=== PATIENT | male | born 1965 | race African-American/Black ===

== ENCOUNTER 2017-10-16 14:58 | Observation (INO) | payer OTHER, SELFPAY ==
--- NOTE | 2017-10-16 15:31 | CT ---
HEAD CT NONCONTRAST: Indication: Stroke activation. Indication: New onset right side arm weakness, slurred speech. FINDINGS: Ventricular system is normal in size. No intracranial hemorrhage, mass effect, or midline shift. No a cute fluid level in the paranasal sinuses. IMPRESSION: No acute intracranial abnormalities. Code CR. ER physician Regina Currie notified at 1521 hours on 10-16-17. POS: [facility]
[2017-10-16 15:34] LABS: #Basophils 0.1 thou/uL (0.0-0.2); #Lymphocytes 2.8 thou/uL (1.20-3.40); #Monocytes 0.5 thou/uL (0.11-0.59); #Neutrophils 2.9 thou/uL (1.40-6.50); %Basophils 1.6 % (0.0-1.0); %Eosinophils 0.6 % (0.0-10.0); %Lymphocytes 44.1 % (21.0-51.0); %Monocytes 8.3 % (0.0-10.0); %Neutrophils 45.4 % (42.0-75.0); Hemoglobin 13.7 g/dL (14.0-18.0); Mean Corpuscular HGB CONC 32.9 g/dL (32.0-36.0); Mean Corpuscular Hemoglobin 29.4 pg (27.0-31.0); Mean Corpuscular Volume 89.3 fl (80.0-94.0); Platelet Count 310 thou/uL (130-400); Red Blood Cell (RBC) Count 4.65 mill/uL (4.70-6.10); White Blood Cell (WBC) Count 6.4 thou/uL (4.8-10.8)
[2017-10-16 15:41] LABS: PTT 28.3 SEC (22.9-36.1); Prothrombin Time 13.7 SEC (12.0-14.7)
[2017-10-16 15:49] LABS: ALT (SGPT) 35 U/L (8-55); AST (SGOT) 35 U/L (5-34); Alkaline Phosphatase 66 U/L (40-150); Anion Gap 16 mmol/L (10-20); BUN (Urea Nitrogen) 21 mg/dL (8.9-20.6); Bilirubin, Total 1.1 mg/dL (0.2-1.2); Calc. Creatinine Clearance 0 mL/min (70-130); Calcium 10.1 mg/dL (7.8-10.44); Carbon Dioxide 23 mmol/L (22-29); Chloride 105 mmol/L (98-107); Estimated GFR-MDRD 76; Globulin 2.9 g/dL (2.4-3.5); Glucose 80 mg/dL (70-105); Potassium 3.8 mmol/L (3.5-5.1); Protein, Total 7.9 g/dL (6.0-8.3); Sodium 140 mmol/L (136-145)
[2017-10-16 15:54] LABS: CKMB 4.5 ng/mL (0-6.6); Troponin I Less than 0.010 ng/mL (< 0.028)
[2017-10-16] MEDS ORDERED: Ketorolac Tromethamine 30 MG/ML VIAL ONE (16:07)
[2017-10-16] MEDS ORDERED: Methocarbamol 500 MG TAB PO SCH (16:15)
[2017-10-16 21:37] LABS: Troponin I Less than 0.010 ng/mL (< 0.028)
[2017-10-16] MEDS ORDERED: Acetaminophen 325 MG TAB PO PRN (21:41)
[2017-10-16] MEDS ORDERED: Ondansetron HCl/PF 4 MG/2 ML Vial IVP PRN (21:41)
[2017-10-16] MEDS ORDERED: Ondansetron ODT 4 MG TAB SL PRN (21:41)
[2017-10-16 23:59] LABS: Troponin I Less than 0.010 ng/mL (< 0.028)
[2017-10-17] MEDS ORDERED: traMADol HCl 50 MG TAB PO PRN (06:47)
[2017-10-17] MEDS ORDERED: hydrALAZINE 20 MG/ML VIAL SLOW IVP PRN (06:47)
[2017-10-17] MEDS ORDERED: Nitroglycerin 0.4 MG TAB (25 Tab Bottle) SL SCH (07:00)
[2017-10-17 07:12] LABS: #Basophils 0.1 thou/uL (0.0-0.2); #Eosinphils 0.1 thou/uL (0.0-0.7); #Lymphocytes 2.3 thou/uL (1.20-3.40); #Monocytes 0.6 thou/uL (0.11-0.59); #Neutrophils 2.1 thou/uL (1.40-6.50); %Basophils 1.6 % (0.0-1.0); %Eosinophils 1.3 % (0.0-10.0); %Lymphocytes 44.7 % (21.0-51.0); %Monocytes 11.1 % (0.0-10.0); %Neutrophils 41.3 % (42.0-75.0); Hemoglobin 13.1 g/dL (14.0-18.0); Mean Corpuscular HGB CONC 33.7 g/dL (32.0-36.0); Mean Corpuscular Hemoglobin 30.7 pg (27.0-31.0); Mean Platelet Volume 6.1 fL (7.4-10.4); Platelet Count 266 thou/uL (130-400); RBC Distribution Width 12.1 % (11.5-14.5); Red Blood Cell (RBC) Count 4.28 mill/uL (4.70-6.10)
[2017-10-17 07:41] LABS: Anion Gap 11 mmol/L (10-20); BUN (Urea Nitrogen) 25 mg/dL (8.9-20.6); Calc. Creatinine Clearance 61 mL/min (70-130); Calcium 9.3 mg/dL (7.8-10.44); Carbon Dioxide 26 mmol/L (22-29); Chloride 106 mmol/L (98-107); Estimated GFR-MDRD 88; Glucose 86 mg/dL (70-105); Sodium 139 mmol/L (136-145)
[2017-10-17] MEDS: Heparin 5,000 UNITS/ML VIAL SC SCH ×3 (08:29→20:46)
[2017-10-17] MEDS: Aspirin 81 mg Enteric Coated Tablet PO SCH (08:29)
--- NOTE | 2017-10-17 09:50 | ULT ---
BILATERAL CAROTID DUPLEX ULTRASOUND EXAMINATION WITH SPECTRAL ANALYSIS AND COLOR FLOW EVALUATION: DATE: 10/17/17. HISTORY: TIA. FINDINGS: Velasquez scale, color flow, Doppler evaluation, and spectral analysis of the bilateral carotid arteries w ith 2D imaging. There is no significant atherosclerotic plaque seen within the carotid arteries bila terally. There is less than 50% maximal stenosis in the bilateral internal carotid arteries according to the p eak systolic velocities and the ICA/CCA ratios. Peak systolic velocity in the right ICA is 95.6 cm/s with an ICA/CCA ratio of 0.91. Peak systolic velocity I the left ICA is 91.8 cm/s with an ICA/CCA ratio of 0.93. Antegrade flow is demonstrated in the vertebral arteries bilaterally. The velocity measurements have not significantly changed when compared to a prior study in 2013. IMPRESSION: No hemodynamically significant stenosis in the bilateral internal carotid arteries. POS: [facility]
--- NOTE | 2017-10-17 12:37 | PDOC.PN ---
- Subjective Encounter Start Date: 10/17/17 Encounter Start Time: 12:35 Subjective: neuro symptoms resolved - Objective Resuscitation Status: Resuscitation Status FULL:Full Resuscitation MAR Reviewed: Yes Vital Signs & Weight: Vital Signs (12 hours) Temp Pulse Resp BP BP Pulse Ox 10/17/17 11:57 99 F 65 16 145/90 H 100 10/17/17 08:46 78 142/98 H 10/17/17 08:43 97.9 F 74 20 151/101 H 100 10/17/17 08:29 62 10/17/17 08:00 97.9 F 74 20 10/17/17 04:00 98.8 F 62 16 137/83 99 Result Diagrams: 10/17/17 06:55 10/17/17 06:55 Phys Exam - Physical Examination Constitutional: NAD Neck: no JVD Respiratory: clear to auscultation bilateral Cardiovascular: RRR, no significant murmur Gastrointestinal: soft, non-tender Musculoskeletal: no edema CN 2-12 intact, DTRs symetric, strength intact Dx/Plan (1) TIA (transient ischemic attack) Status: Acute Qualifiers: Transient cerebral ischemia type: unspecified Qualified Code(s): G45.9 - Transient cerebral ischemic attack, unspecified (2) Dyslipidemia Code(s): E78.5 - HYPERLIPIDEMIA, UNSPECIFIED Status: Chronic (3) HTN (hypertension) Code(s): I10 - ESSENTIAL (PRIMARY) HYPERTENSION Status: Chronic Qualifiers: Hypertension type: essential hypertension Qualified Code(s): I10 - Essential (primary) hypertension (4) Chest pain Code(s): R07.9 - CHEST PAIN, UNSPECIFIED Status: Acute Comment: Troponins negative x 3, plan for left heart cath in am - Plan carotid US ok, MRI brain pending -: cont asa, statin -: troponins normal, cardiac cath 01/21 essentially normal- no further ROSENBAUM * .
--- NOTE | 2017-10-17 16:38 | CON ---
DATE OF CONSULTATION: 10/17/2017 REFERRING PHYSICIAN: April Hendrickson MD REASON FOR CONSULTATION: TIA. HISTORY OF PRESENT ILLNESS: Mr. Lin is a pleasant 51-year-old male, who has been consu lted for evaluation of TIA. The patient reports that yesterday he was in the phone with his daughter and suddenly noted right arm to twist and locked up. He was feeling heaviness in the right arm and also noted slurring of his speech, this prompted him to present to the [facility]. He notes that these symptoms lasted approximately 30 minutes and then resolved. He reports that on morning he had another episode, where he had a sudden onset of blurry vision along with dark floate rs in the right eye followed by sudden severe throbbing sharp pain on the right frontotemporal region , this was nonradiating and lasted approximately 30 minutes and then resolved. His symptoms of blurr y vision and dark floaters lasted less than 10 minutes. He states that on July of this year, he had an episode where he had a sudden onset of a sharp pain in the left frontotemporal region along wi th blurry vision in left eye. He also had noted numbness and tingling sensation in the left upper an d left lower extremity that migrated toward the right side and lasted for approximately 20-30 minutes and then resolved. He did not seek any medical attention at that time. Currently, he denies any he adache, chest pain, palpitation, nausea, vomiting, abdominal pain, numbness, tingling or weakness. H e did mention that over the past few days he has been having upset stomach and nausea, but no vomitin g. He also has noted episodes of chest pain and palpitation that is intermittent. PAST MEDICAL HISTORY: Significant for hypertension, coronary artery disease, history of MO, and hype rlipidemia. PAST SURGICAL HISTORY: Significant for cervical spine surgery, right elbow surgery, appendectomy, ca rdiac stent placement. SOCIAL HISTORY: He denies alcohol use. He is a former smoker, quit smoking about 1 year ago. He de nies illicit drug use. He is . FAMILY HISTORY: Noncontributory. CURRENT MEDICATIONS: Please review MAR. ALLERGIES: Include LIDOCAINE and METOPROLOL. REVIEW OF SYSTEMS: As mentioned in the HPI, otherwise negative. PHYSICAL EXAMINATION: VITAL SIGNS: Blood pressure of 145/90, pulse of 65, temperature of 99, respirations of 16, O2 sats o f 100% on room air. GENERAL: Well-developed, well-nourished -[place] male, in no apparent distress. RESPIRATORY: Clear to auscultation bilaterally. CARDIOVASCULAR: Regular rate and rhythm. NEUROLOGIC: Mental status: The patient is awake, alert, and oriented x3. Speech and language: Flu ent speech. Cranial nerves: Pupils are 3 mm and reactive. Visual wilcox are intact. External musc les are intact. No nystagmus is noted. Face is symmetric. Tongue and uvula are midline. Motor exa m showed normal tone and bulk with 5/5 strength in both upper and lower extremities. Sensory: Sensa tion is intact and symmetric in both upper and lower extremities. Deep tendon reflexes 2+ reflexes i n both upper and lower extremities. Babinski: Plantar responses flexion bilaterally. Coordination intact to [id number]-zdal-hkpeaf and finger tapping bilaterally. LABORATORY DATA: Reviewed, which included CBC, coag panel, CMP, which is significant for hemoglobin 13.1, hematocrit 39.0, otherwise unremarkable. IMAGING STUDIES: CT head without contrast, which showed no acute intracranial abnormality. Carotid Doppler results were reviewed, which showed no hemodynamically significant stenosis. IMPRESSION: 1. Transient episode of right upper extremity weakness. 2. Hypertension. PLAN: Mr. Lin is a pleasant 51-year-old -[place] male, who presented with an acute onset of right upper extremity heaviness and weakness along with slurred speech. His symptoms resolved in less than 30 minutes. This could be suggestive of a transient ischemic attack. Another possibility is a migraine aura with headache since he had the episode of blurred vision in the right eye followe d by severe headache. At this time, I would recommend obtaining echocardiogram. I will recommend st arting him on aspirin 81 mg daily for secondary stroke prevention. If the echocardiogram is normal, the patient is okay to be discharged to home. Since the MRI machines are currently unoperationable, he can have MRI brain as an outpatient and I will be happy to see him in clinic post-discharge in 4-6 weeks. Thank you for consultation.
[2017-10-17] MEDS ORDERED: Atorvastatin Calcium 10 MG TAB PO SCH (21:00)
[2017-10-17] MEDS ORDERED: Pravastatin Sodium 20 MG TAB PO SCH (21:00)
[2017-10-18 05:53] LABS: #Basophils 0.1 thou/uL (0.0-0.2); #Eosinphils 0.1 thou/uL (0.0-0.7); #Lymphocytes 2.4 thou/uL (1.20-3.40); #Monocytes 0.5 thou/uL (0.11-0.59); #Neutrophils 2.2 thou/uL (1.40-6.50); %Basophils 1.6 % (0.0-1.0); %Eosinophils 1.8 % (0.0-10.0); %Lymphocytes 44.6 % (21.0-51.0); %Monocytes 9.8 % (0.0-10.0); %Neutrophils 42.2 % (42.0-75.0); Hemoglobin 12.5 g/dL (14.0-18.0); Mean Corpuscular HGB CONC 32.2 g/dL (32.0-36.0); Mean Corpuscular Hemoglobin 29.5 pg (27.0-31.0); Mean Corpuscular Volume 91.4 fl (80.0-94.0); Mean Platelet Volume 6.3 fL (7.4-10.4); Platelet Count 286 thou/uL (130-400); Red Blood Cell (RBC) Count 4.24 mill/uL (4.70-6.10); White Blood Cell (WBC) Count 5.3 thou/uL (4.8-10.8)
[2017-10-18 06:20] LABS: Anion Gap 10 mmol/L (10-20); BUN (Urea Nitrogen) 17 mg/dL (8.9-20.6); Calc. Creatinine Clearance 66 mL/min (70-130); Carbon Dioxide 27 mmol/L (22-29); Cardiac Risk 2.5 (Less than 4.5); Chloride 106 mmol/L (98-107); Cholesterol 201 mg/dl (< 200 Desired); Estimated GFR-MDRD Greater than 90; Glucose 91 mg/dL (70-105); HDL Cholesterol 80 mg/dL (>60 Neg Risk); LDL Cholesterol, Calculated 109 mg/dL; Potassium 3.9 mmol/L (3.5-5.1); Triglycerides 58 mg/dL (Less than 150)
[2017-10-18 06:32] LABS: Sodium 139 mmol/L (136-145)
[2017-10-18 07:46] VITALS: TEMP 97.8
[2017-10-18] MEDS: Heparin 5,000 UNITS/ML VIAL SC SCH ×2 (08:44→16:35)
[2017-10-18] MEDS: Aspirin 81 mg Enteric Coated Tablet PO SCH (08:45)
[2017-10-18 11:49] VITALS: BP 142/82
--- NOTE | 2017-10-18 12:14 | MRI ---
MRI WITHOUT CONTRAST: HISTORY: Stroke activation. Right arm weakness. Slurred speech. COMPARISON: None. CORRELATION: Noncontrast head CT 10/16/17. TECHNIQUE: Brain MRI is performed without intravenous Gadolinium administration. Multisequential, multiplanar i maging is performed. FINDINGS: No hemorrhage no the axial gradient echo sequence. Calvarium has a normal T1 marrow signal intensity. Midline brain parenchymal structures are unremark able. Central arterial flow voids are maintained. Absent restricted diffusion. No significant T2 or FLAIR white matter hyperintensities. Adequate aeration of the sinuses and masto id air cells. No parenchymal mass, mass effect, or midline shift. Brain volume is age appropriate. Cortical blum- white matter differentiation is preserved. No evidence of hydrocephalus. IMPRESSION: Absent restricted diffusion. No acute infarction. POS: [facility]
--- NOTE | 2017-10-18 16:10 | PDOC.EVN ---
Event Note - Event Note Event Note: DC SUMMARY #[id number]
--- NOTE | 2017-10-19 00:30 | DIS ---
DATE OF ADMISSION: 10/16/2017 DATE OF DISCHARGE: 10/18/2017 ADMITTING DIAGNOSES: Transient ischemic attack, hypertension, dyslipidemia, and chest pain. DISCHARGE DIAGNOSES: Transient ischemic attack, resolved; dyslipidemia, stable; hypertension, stable ; and chest pain, resolved. HOSPITAL COURSE: This is a 51-year-old male who was admitted to Internal Medicine team due to sympto ms and signs concerning for CVA along with chest pain. The patient was admitted to Internal Medicine team also seen by Neurology. The patient had carotid ultrasounds done, which showed no hemodynamica lly significant stenosis. The patient also had a CT scan done which did not show any acute bleeding or infarction. The patient had an MRI without contrast done which showed absent restricted diffusion and no acute infarction noted. Patient had tele monitoring done which showed no acute arrhythmias. Also had an echocardiogram performed. The patient at point in time of discharge stated that he was back to baseline. Denied any nausea, vomiting, diarrhea, constipation, chest pain, fevers, chills, s hortness of breath, was able to walk around, tolerating diet. No limitations on neurological sensory or motor function. DISPOSITION: Home. FOLLOWUP: Follow up with PCP and Neurology within 1-2 weeks. DIET: Low fat, low calorie, high fiber diet. ACTIVITY: As tolerated with assistance as appropriate. MEDICATIONS: See MAR. CONDITION: Stable. PROGNOSIS: Good. Case and plan discussed with the patient and family at length. They understand and agree with this p ottoniel.
--- NOTE | 2017-10-19 08:33 | HP ---
PRIMARY CARE PHYSICIAN: CHIEF COMPLAINT: Right upper extremity weakness HISTORY OF PRESENT ILLNESS: The patient is a 51-year-old male with a known history of hypertension, hyperlipidemia who initially presented with chief complaint of slurred speech, chest pain, weakness of the right upper extremity. At the time of exam, symptoms had resolved. The patient's states that his symptoms started earlier this morning and his speech is back to his baseline. The patient denies any prior similar episodes. Denies any headache, dizziness, lightheadedness, pain does not radiate to the jaw or to the L arm. REVIEW OF SYSTEMS: As per HPI, otherwise negative. No recent infectious contacts. No recent upper respiratory infections. No recent gastrointestinal infections. PAST MEDICAL HISTORY: As per above. HOME MEDICATIONS: Pravastatin 40, nitroglycerine, lisinopril, diltiazem 120, aspirin 81, tramadol 60 mg q.6 hours p.r.n. ALLERGIES: LIDOCAINE and METOPROLOL. FAMILY HISTORY: There is no family history of stroke, family history of hypertension, coronary artery disease. SOCIAL HISTORY: Denies any tobacco, alcohol, or illicit drug use. PHYSICAL EXAMINATION: GENERAL: Patient is awake, alert, on hospital bed in no acute distress. HEENT: Normocephalic, atraumatic. Moist mucous membranes. Equal ocular motions are intact. NEUROLOGIC: Cranial nerves II through XII are grossly intact. CARDIOVASCULAR: S1, S2. No murmurs, rubs or gallops. Pulses 2+ bilateral upper extremities. No pitting pedal edema. RESPIRATORY: Reasonable air movement. No conversational dyspnea. No wheezes , rales, or rhonchi. ABDOMEN: Positive bowel sounds. Soft, nontender to palpation. MUSCULOSKELETAL: Moving all 4 extremities equally. IMAGING: On 10/16/2017, CT of the brain. Impression: No acute intracranial abnormalities. LABORATORY DATA: WBC 6.4, hemoglobin 13, hematocrit 41.5, platelets 310,000. PT 13.7, INR 1. Sodium 140, potassium 3.8, chloride 105, bicarbonate 23, BUN 21 , creatinine 1.22, glucose 80, calcium 10.1, total bilirubin 1.1. AST 35, ALT 35, alkaline phosphatase 66. Troponin less than 0.01 x2. Total protein 7.9, albumin 5. ASSESSMENT AND PLAN: A 51-year-old gentleman who presents slurred speech and RUE weakness 1. Concern for TIA, neurological symptoms. Check carotid dopplers, echocardiogram. Serial neurological checks. 2. History of coronary artery disease as a risk factor, continue home regimen. 3. Hypertension, stable, continue home regimen. 4. Hyperlipidemia, stable, continue home regimen. Diet: As tolerated. Activity: As tolerated. Deep venous thrombosis prophylaxis. Thank you for asking me to care for the patient. Questions or concerns, contact me at [facility]. THAI
--- NOTE | 2017-10-24 16:33 | EKG ---
Test Reason : Blood Pressure : / mmHG Vent. Rate : 087 BPM Atrial Rate : 087 BPM P-R Int : 132 ms QRS Dur : 082 ms QT Int : 358 ms P-R-T Axes : 074 063 057 degrees QTc Int : 430 ms Normal sinus rhythm Minimal voltage criteria for LVH, may be normal variant Borderline ECG Confirmed by BOBY FLYNN ([id number]), desk editor JASSI BARROSO ([id number]) on 10/24/2017 4:33:07 PM Referred By: Confirmed By:BOBY FLYNN
== END 2017-10-18 16:57 | disposition home or self-care (01) ==
LOC: EEVIPCON 14:58 → ERS 14:58 → 2SE 20:14
PROVIDERS: ADMIT Internal Medicine; ATTEND Internal Medicine
DX: G45.9 Transient cerebral ischemic attack, unspecified (principal); E78.5 Hyperlipidemia, unspecified; I10 Essential (primary) hypertension; I25.10 Atherosclerotic heart disease of native coronary artery without angina pectoris; I25.2 Old myocardial infarction; R07.9 Chest pain, unspecified; Z87.891 Personal history of nicotine dependence; Z79.82 Long term (current) use of aspirin; Z79.899 Other long term (current) drug therapy; Z88.8 Allergy status to other drugs, medicaments and biological substances; Z95.5 Presence of coronary angioplasty implant and graft
CPT/HCPCS: 36415; 36416; 70450; 70551; 80048; 80053; 80061; 82553; 84484; 85025; 85610; 85730; 93005; 93306; 93880; 96374; 99406; G0378; G9162-GN-CH; G9163-GN-CH; G9164-GN-CH; J1644; J1885

== ENCOUNTER 2019-04-24 09:58 | Emergency (ER) | payer SELFPAY ==
[2019-04-24 10:25] LABS: #Basophils 0.1 thou/uL (0.0-0.2); #Eosinphils 0.2 thou/uL (0.0-0.7); #Lymphocytes 2.5 thou/uL (1.20-3.40); #Monocytes 0.6 thou/uL (0.11-0.59); #Neutrophils 4.1 thou/uL (1.40-6.50); %Basophils 1.5 % (0.0-1.0); %Lymphocytes 33.7 % (21.0-51.0); %Monocytes 7.5 % (0.0-10.0); %Neutrophils 55.2 % (42.0-75.0); Mean Corpuscular HGB CONC 32.6 g/dL (32.0-36.0); Mean Corpuscular Hemoglobin 29.6 pg (27.0-31.0); Mean Corpuscular Volume 90.6 fL (78.0-98.0); Platelet Count 464 thou/uL (130-400); RBC Distribution Width 12.3 % (11.5-14.5); Red Blood Cell (RBC) Count 4.73 mill/uL (4.70-6.10); White Blood Cell (WBC) Count 7.5 thou/uL (4.8-10.8)
[2019-04-24 10:28] LABS: Bacteria/HPF None Seen HPF (None Seen); Bilirubin Negative (Negative); Blood, Urine Negative (Negative); Clarity Clear (Clear); Glucose, Urine (Dipstick) Normal (Negative); Leukocyte 75 Leu/uL (Negative); Nitrite Negative (Negative); Protein, Urine (Dipstick) Negative (Neg-Trace); RBC/HPF 0-3 HPF (0-3); Squamous Epithelial 0-3 HPF (0-3); Urobilinogen Normal mg/dL (Less than 2)
[2019-04-24 10:45] LABS: ALT (SGPT) 29 U/L (8-55); AST (SGOT) 21 U/L (5-34); Alkaline Phosphatase 80 U/L (40-110); Anion Gap 14 mmol/L (10-20); BUN (Urea Nitrogen) 11 mg/dL (8.4-25.7); Bilirubin, Total 0.6 mg/dL (0.2-1.2); Calc. Creatinine Clearance 0 mL/min (70-130); Calcium 9.6 mg/dL (7.8-10.44); Carbon Dioxide 28 mmol/L (22-29); Chloride 103 mmol/L (98-107); Estimated GFR-MDRD Greater than 90; Globulin 2.9 g/dL (2.4-3.5); Glucose 99 mg/dL (70-105); Lipase 33 U/L (8-78); Potassium 3.7 mmol/L (3.5-5.1); Protein, Total 7.9 g/dL (6.0-8.3); Sodium 141 mmol/L (136-145)
[2019-04-24] MEDS ORDERED: cefTRIAXone\\ROCEPHIN 2 GM VIAL ONE (11:17)
[2019-04-24] MEDS ORDERED: Ketorolac Tromethamine 30 MG/ML VIAL ONE (11:17)
== END 2019-04-24 11:51 | disposition home or self-care (01) ==
LOC: ERS 09:58
DX: N41.9 Inflammatory disease of prostate, unspecified (principal); I25.2 Old myocardial infarction; I10 Essential (primary) hypertension; F17.210 Nicotine dependence, cigarettes, uncomplicated; E78.5 Hyperlipidemia, unspecified; E78.00 Pure hypercholesterolemia, unspecified
CPT/HCPCS: 80053; 81003; 81015; 83690; 85025; 87086; 96365; 96375; J0696; J1885

== ENCOUNTER 2020-08-12 15:21 | Inpatient (IN) | payer SELFPAY ==
[2020-08-12] MEDS ORDERED: Aspirin Chewable 81 MG TAB ONE (15:53)
[2020-08-12] MEDS ORDERED: Acetaminophen 500 MG TAB ONE (16:02)
[2020-08-12 16:05] LABS: #Basophils 0.1 thou/uL (0.0-0.2); #Eosinphils 0.1 thou/uL (0.0-0.7); #Lymphocytes 1.5 thou/uL (1.20-3.40); #Monocytes 0.5 thou/uL (0.11-0.59); #Neutrophils 3.3 thou/uL (1.40-6.50); %Basophils 1.2 % (0.0-1.0); %Eosinophils 0.9 % (0.0-10.0); %Lymphocytes 27.1 % (21.0-51.0); %Neutrophils 61.8 % (42.0-75.0); Hemoglobin 13.1 g/dL (14.0-18.0); Mean Corpuscular HGB CONC 32.8 g/dL (32.0-36.0); Mean Corpuscular Hemoglobin 30.6 pg (27.0-31.0); Mean Corpuscular Volume 93.2 fL (78.0-98.0); Mean Platelet Volume 6.1 fL (7.4-10.4); Platelet Count 330 thou/uL (130-400); RBC Distribution Width 11.4 % (11.5-14.5); Red Blood Cell (RBC) Count 4.28 mill/uL (4.70-6.10); White Blood Cell (WBC) Count 5.4 thou/uL (4.8-10.8)
[2020-08-12 16:26] LABS: ALT (SGPT) 38 U/L (8-55); AST (SGOT) 30 U/L (5-34); Albumin 4.4 g/dL (3.5-5.0); Alkaline Phosphatase 63 U/L (40-110); Anion Gap 14 mmol/L (10-20); BUN (Urea Nitrogen) 12 mg/dL (8.4-25.7); Bilirubin, Total 0.4 mg/dL (0.2-1.2); Calc. Creatinine Clearance 0 mL/min (70-130); Calcium 8.8 mg/dL (7.8-10.44); Carbon Dioxide 26 mmol/L (22-29); Chloride 103 mmol/L (98-107); Globulin 2.9 g/dL (2.4-3.5); Glucose 114 mg/dL (70-105); Lipase 30 U/L (8-78); Potassium 3.8 mmol/L (3.5-5.1); Protein, Total 7.3 g/dL (6.0-8.3); Sodium 139 mmol/L (136-145)
[2020-08-12] MEDS ORDERED: Nitroglycerin 0.4 MG TAB (25 Tab Bottle) SL PRN (18:09)
[2020-08-12] MEDS: Atorvastatin Calcium 40 MG TAB PO SCH (20:39)
[2020-08-12 21:53] VITALS: BMI 19.9
[2020-08-12] MEDS: Acetaminophen 325 MG TAB PO PRN (22:08)
[2020-08-13 05:18] LABS: #Basophils 0.1 thou/uL (0.0-0.2); #Lymphocytes 1.9 thou/uL (1.20-3.40); #Monocytes 0.5 thou/uL (0.11-0.59); %Basophils 2.2 % (0.0-1.0); %Eosinophils 0.9 % (0.0-10.0); %Lymphocytes 41.5 % (21.0-51.0); %Monocytes 10.9 % (0.0-10.0); %Neutrophils 44.5 % (42.0-75.0); Mean Corpuscular Hemoglobin 29.2 pg (27.0-31.0); Mean Platelet Volume 6.1 fL (7.4-10.4); Platelet Count 323 thou/uL (130-400); RBC Distribution Width 11.3 % (11.5-14.5); Red Blood Cell (RBC) Count 4.45 mill/uL (4.70-6.10); White Blood Cell (WBC) Count 4.6 thou/uL (4.8-10.8)
[2020-08-13 05:43] LABS: Anion Gap 11 mmol/L (10-20); BUN (Urea Nitrogen) 14 mg/dL (8.4-25.7); Calc. Creatinine Clearance 82 mL/min (70-130); Calcium 9.1 mg/dL (7.8-10.44); Carbon Dioxide 29 mmol/L (22-29); Chloride 105 mmol/L (98-107); Cholesterol 195 mg/dl (< 200 Desired); Glucose 98 mg/dL (70-105); HDL Cholesterol 64 mg/dL (>60 Neg Risk); LDL Cholesterol, Calculated 114 mg/dL; Potassium 4.3 mmol/L (3.5-5.1); Sodium 141 mmol/L (136-145); Triglycerides 83 mg/dL (Less than 150)
[2020-08-13] MEDS: Aspirin 81 mg Enteric Coated Tablet PO SCH (08:07)
[2020-08-13] MEDS: Acetaminophen 325 MG TAB PO PRN ×2 (15:18→22:16)
[2020-08-13] MEDS: Atorvastatin Calcium 40 MG TAB PO SCH (20:15)
[2020-08-13] MEDS: Guaifenesin DM 100-10/5 ML UDCUP PO PRN (20:16)
[2020-08-14 05:33] LABS: #Basophils 0.1 thou/uL (0.0-0.2); #Lymphocytes 2.3 thou/uL (1.20-3.40); #Monocytes 0.7 thou/uL (0.11-0.59); #Neutrophils 3.1 thou/uL (1.40-6.50); %Basophils 1.7 % (0.0-1.0); %Eosinophils 0.6 % (0.0-10.0); %Lymphocytes 36.8 % (21.0-51.0); %Monocytes 10.5 % (0.0-10.0); %Neutrophils 50.3 % (42.0-75.0); Mean Corpuscular HGB CONC 31.3 g/dL (32.0-36.0); Mean Corpuscular Hemoglobin 29.3 pg (27.0-31.0); Mean Corpuscular Volume 93.8 fL (78.0-98.0); Mean Platelet Volume 6.3 fL (7.4-10.4); Platelet Count 330 thou/uL (130-400); RBC Distribution Width 11.5 % (11.5-14.5); Red Blood Cell (RBC) Count 4.77 mill/uL (4.70-6.10); White Blood Cell (WBC) Count 6.1 thou/uL (4.8-10.8)
[2020-08-14 05:56] LABS: Anion Gap 15 mmol/L (10-20); BUN (Urea Nitrogen) 15 mg/dL (8.4-25.7); Calc. Creatinine Clearance 66 mL/min (70-130); Calcium 9.3 mg/dL (7.8-10.44); Carbon Dioxide 27 mmol/L (22-29); Chloride 103 mmol/L (98-107); Glucose 100 mg/dL (70-105); Potassium 3.6 mmol/L (3.5-5.1); Sodium 141 mmol/L (136-145)
[2020-08-14] MEDS: Enoxaparin Sodium 40 MG/0.4 ML SYRINGE SC SCH (08:32)
[2020-08-14] MEDS: Zinc Sulfate 220 MG CAP PO SCH (08:32)
[2020-08-14] MEDS: Ascorbic Acid 500 mg Chewable Tablet PO SCH (08:32)
[2020-08-14] MEDS: Aspirin 81 mg Enteric Coated Tablet PO SCH (08:32)
[2020-08-14] MEDS: Acetaminophen 325 MG TAB PO PRN ×3 (08:32→18:33)
[2020-08-14] MEDS ORDERED: Polyethylene Glycol 3350 17 GM Packet PO PRN (16:56)
[2020-08-14] MEDS: Guaifenesin DM 100-10/5 ML UDCUP PO PRN (18:21)
[2020-08-14] MEDS ORDERED: Lorazepam 2 MG/ML VIAL SLOW IVP PRN (20:06)
[2020-08-14] MEDS ORDERED: Diazepam 5 MG TAB PO PRN (20:09)
[2020-08-14] MEDS: Atorvastatin Calcium 40 MG TAB PO SCH (20:18)
[2020-08-14] MEDS ORDERED: Thiamine HCl 200 MG/2 ML VIAL IM SCH (20:30)
[2020-08-15] MEDS ORDERED: Diazepam 5 MG TAB PO PRN (04:00)
[2020-08-15 04:51] LABS: #Basophils 0.1 thou/uL (0.0-0.2); #Monocytes 0.7 thou/uL (0.11-0.59); #Neutrophils 2.5 thou/uL (1.40-6.50); %Basophils 1.2 % (0.0-1.0); %Eosinophils 0.8 % (0.0-10.0); %Lymphocytes 38.5 % (21.0-51.0); %Monocytes 12.5 % (0.0-10.0); Hemoglobin 13.6 g/dL (14.0-18.0); Mean Corpuscular HGB CONC 31.8 g/dL (32.0-36.0); Mean Corpuscular Hemoglobin 29.7 pg (27.0-31.0); Mean Corpuscular Volume 93.4 fL (78.0-98.0); Mean Platelet Volume 6.3 fL (7.4-10.4); Platelet Count 292 thou/uL (130-400); RBC Distribution Width 11.3 % (11.5-14.5); Red Blood Cell (RBC) Count 4.59 mill/uL (4.70-6.10); White Blood Cell (WBC) Count 5.3 thou/uL (4.8-10.8)
[2020-08-15 05:11] LABS: Anion Gap 14 mmol/L (10-20); BUN (Urea Nitrogen) 18 mg/dL (8.4-25.7); Calc. Creatinine Clearance 69 mL/min (70-130); Calcium 9.2 mg/dL (7.8-10.44); Carbon Dioxide 26 mmol/L (22-29); Chloride 104 mmol/L (98-107); Glucose 98 mg/dL (70-105); Potassium 3.6 mmol/L (3.5-5.1); Sodium 140 mmol/L (136-145)
[2020-08-15] MEDS: Ascorbic Acid 500 mg Chewable Tablet PO SCH (07:52)
[2020-08-15] MEDS: Aspirin 81 mg Enteric Coated Tablet PO SCH (07:52)
[2020-08-15] MEDS: Zinc Sulfate 220 MG CAP PO SCH (07:53)
[2020-08-15] MEDS: Enoxaparin Sodium 40 MG/0.4 ML SYRINGE SC SCH (07:53)
[2020-08-15] MEDS: Guaifenesin DM 100-10/5 ML UDCUP PO PRN (07:55)
[2020-08-15] MEDS ORDERED: Folic Acid 1 MG TAB PO SCH (09:00)
[2020-08-15] MEDS ORDERED: Magnesium Oxide 400 MG TAB PO SCH (09:00)
[2020-08-15] MEDS ORDERED: Thiamine 100 MG TAB PO SCH (09:00)
[2020-08-15] MEDS ORDERED: Multivitamin W/ Minerals 1 TAB PO SCH (09:00)
[2020-08-15] MEDS: Acetaminophen 325 MG TAB PO PRN (11:45)
[2020-08-15 12:49] VITALS: BP 161/94; TEMP 99.2
== END 2020-08-15 16:05 | disposition home or self-care (01) | DRG 73 ==
LOC: ERS 15:21 → 2SW 17:37 → OBSVTOIN 17:37 → 2SW 19:21
PROVIDERS: ADMIT Internal Medicine; ATTEND Internal Medicine
DX: M54.12 Radiculopathy, cervical region (principal); U07.1 COVID-19; G45.9 Transient cerebral ischemic attack, unspecified; E78.5 Hyperlipidemia, unspecified; E78.00 Pure hypercholesterolemia, unspecified; I10 Essential (primary) hypertension; K58.9 Irritable bowel syndrome, unspecified; Z86.73 Personal history of transient ischemic attack (TIA), and cerebral infarction without residual deficits; I25.2 Old myocardial infarction; Z95.5 Presence of coronary angioplasty implant and graft; Z88.8 Allergy status to other drugs, medicaments and biological substances; Z90.49 Acquired absence of other specified parts of digestive tract; Z87.891 Personal history of nicotine dependence; Z79.82 Long term (current) use of aspirin; Z79.899 Other long term (current) drug therapy; Z98.890 Other specified postprocedural states
CPT/HCPCS: 36415; 70450; 70551; 71045; 80048; 80053; 80061; 83690; 83880; 84484; 85025; 85379; 93005; 93880; 94760; G0378; J1650; J3411; J3475; J3490

== ENCOUNTER 2021-07-02 14:09 | Inpatient (IN) | payer SELFPAY ==
[2021-07-02 14:47] LABS: #Basophils 0.1 thou/uL (0.0-0.2); #Eosinphils 0.1 thou/uL (0.0-0.7); #Lymphocytes 1.6 thou/uL (1.20-3.40); #Monocytes 0.5 thou/uL (0.11-0.59); #Neutrophils 2.6 thou/uL (1.40-6.50); %Basophils 1.1 % (0.0-1.0); %Eosinophils 1.2 % (0.0-10.0); %Lymphocytes 32.8 % (21.0-51.0); %Monocytes 10.4 % (0.0-10.0); %Neutrophils 54.5 % (42.0-75.0); Hemoglobin 13.1 g/dL (14.0-18.0); Mean Corpuscular HGB CONC 31.2 g/dL (32.0-36.0); Mean Corpuscular Hemoglobin 29.1 pg (27.0-31.0); Mean Corpuscular Volume 93.1 fL (78.0-98.0); Mean Platelet Volume 5.9 fL (7.4-10.4); Platelet Count 377 thou/uL (130-400); RBC Distribution Width 12.1 % (11.5-14.5); White Blood Cell (WBC) Count 4.8 thou/uL (4.8-10.8)
[2021-07-02 15:15] LABS: ALT (SGPT) 29 U/L (8-55); AST (SGOT) 24 U/L (5-34); Albumin 4.4 g/dL (3.5-5.0); Alkaline Phosphatase 63 U/L (40-110); Anion Gap 13 mmol/L (10-20); BUN (Urea Nitrogen) 12 mg/dL (8.4-25.7); Bilirubin, Total 0.5 mg/dL (0.2-1.2); Calc. Creatinine Clearance 0 mL/min (70-130); Calcium 9.3 mg/dL (7.8-10.44); Carbon Dioxide 25 mmol/L (22-29); Chloride 109 mmol/L (98-107); Globulin 2.7 g/dL (2.4-3.5); Glucose 98 mg/dL (70-105); Potassium 4.2 mmol/L (3.5-5.1); Protein, Total 7.1 g/dL (6.0-8.3); Sodium 143 mmol/L (136-145)
[2021-07-02 15:35] LABS: Cardiac Risk 3.5 (Less than 4.5); Cholesterol 222 mg/dl (< 200 Desired); HDL Cholesterol 63 mg/dL (>60 Neg Risk); LDL Cholesterol, Calculated 132 mg/dL; Phosphorus 3.3 mg/dL (2.3-4.7); Triglycerides 133 mg/dL (Less than 150)
[2021-07-02] MEDS ORDERED: Ondansetron ODT 4 MG TAB ONE (15:48)
[2021-07-02] MEDS ORDERED: Aspirin Chewable 81 MG TAB ONE (15:48)
[2021-07-02 17:10] LABS: SARS-CoV-2 NAA Rapid Test DETECTED (NotDetected)
[2021-07-02 18:31] LABS: Troponin I Less than 0.010 ng/mL (< 0.028)
[2021-07-02] MEDS ORDERED: Acetaminophen 500 MG TAB ONE (18:39)
[2021-07-02] MEDS ORDERED: Benzonatate 100 MG CAP ONE (18:39)
[2021-07-02] MEDS ORDERED: Senokot S 8.6-50 MG TAB PO PRN (18:49)
[2021-07-02] MEDS ORDERED: Ondansetron PF 4 MG/2 ML Vial IVP PRN (18:49)
[2021-07-02] MEDS ORDERED: Ondansetron ODT 4 MG TAB PO PRN (18:49)
[2021-07-02] MEDS ORDERED: Acetaminophen 325 MG TAB PO PRN (18:49)
[2021-07-02] MEDS ORDERED: Nitroglycerin 0.4 MG TAB (25 Tab Bottle) SL PRN (18:53)
[2021-07-02] MEDS ORDERED: guaiFENesin 200 MG TAB PO PRN (18:56)
[2021-07-02] MEDS: Sodium Chloride 0.9% 1,000 ML IV SCH (20:06)
[2021-07-02] MEDS ORDERED: Enoxaparin Sodium 40 MG/0.4 ML SYRINGE ONE (21:00)
[2021-07-02] MEDS ORDERED: Atorvastatin Calcium 10 MG TAB PO SCH (21:00)
[2021-07-02 21:07] LABS: Troponin I Less than 0.010 ng/mL (< 0.028)
[2021-07-02] MEDS: Enoxaparin Sodium 40 MG/0.4 ML SYRINGE SC SCH (21:08)
[2021-07-03 04:53] LABS: #Eosinphils 0.1 thou/uL (0.0-0.7); #Lymphocytes 2.3 thou/uL (1.20-3.40); #Monocytes 0.4 thou/uL (0.11-0.59); #Neutrophils 2.7 thou/uL (1.40-6.50); %Basophils 0.8 % (0.0-1.0); %Eosinophils 1.6 % (0.0-10.0); %Lymphocytes 41.2 % (21.0-51.0); %Monocytes 7.6 % (0.0-10.0); %Neutrophils 48.8 % (42.0-75.0); Hemoglobin 12.8 g/dL (14.0-18.0); Mean Corpuscular HGB CONC 31.4 g/dL (32.0-36.0); Mean Corpuscular Volume 92.3 fL (78.0-98.0); Mean Platelet Volume 5.9 fL (7.4-10.4); Platelet Count 358 thou/uL (130-400); RBC Distribution Width 12.3 % (11.5-14.5); Red Blood Cell (RBC) Count 4.41 mill/uL (4.70-6.10); White Blood Cell (WBC) Count 5.6 thou/uL (4.8-10.8)
[2021-07-03 05:19] LABS: Anion Gap 11 mmol/L (10-20); BUN (Urea Nitrogen) 11 mg/dL (8.4-25.7); Calc. Creatinine Clearance 0 mL/min (70-130); Calcium 9.1 mg/dL (7.8-10.44); Carbon Dioxide 27 mmol/L (22-29); Chloride 107 mmol/L (98-107); Glucose 93 mg/dL (70-105); Potassium 3.8 mmol/L (3.5-5.1); Sodium 141 mmol/L (136-145)
[2021-07-03] MEDS ORDERED: ADENOSINE 60 MG/20 ML VIAL ONE (09:29)
[2021-07-03] MEDS: Sodium Chloride 0.9% 1,000 ML IV SCH (12:56)
[2021-07-03] MEDS ORDERED: Aspirin Chewable 81 MG TAB ONE (13:52)
[2021-07-03] MEDS ORDERED: Zinc Sulfate 220 MG CAP ONE (13:52)
[2021-07-03] MEDS ORDERED: Ascorbic Acid 500 mg Chewable Tablet ONE (13:52)
[2021-07-03] MEDS: Ascorbic Acid 500 mg Chewable Tablet PO SCH (13:55)
[2021-07-03] MEDS: Aspirin Chewable 81 MG TAB PO SCH (13:55)
[2021-07-03] MEDS: Zinc Sulfate 220 MG CAP PO SCH (13:55)
[2021-07-03 16:13] VITALS: BMI 19.8
[2021-07-03] MEDS ORDERED: FLU VACC QS2021-22(6MOS UP)/PF 60 MCG/0.5 ML SYRINGE IM ONE (16:30)
[2021-07-03] MEDS ORDERED: Amlodipine 5 MG TAB PO SCH (16:45)
[2021-07-03] MEDS ORDERED: Lisinopril 10 MG TAB PO SCH (16:45)
[2021-07-03 18:27] LABS: Bacteria/HPF None Seen HPF (None Seen); Bilirubin Negative (Negative); Blood, Urine Negative (Negative); Clarity Clear (Clear); Glucose, Urine (Dipstick) Normal (Negative); Ketone, Urine Negative (Negative); Leukocyte Negative Leu/uL (Negative); Nitrite Negative (Negative); Protein, Urine (Dipstick) Negative (Neg-Trace); RBC/HPF 0-3 HPF (0-3); Specific Gravity, Urine 1.015 (1.002-1.036); Squamous Epithelial None Seen HPF (0-3); Urobilinogen Normal mg/dL (Less than 2); WBC/HPF 0-3 HPF (0-3)
[2021-07-03 18:35] LABS: Amphetamine Not Detected (NotDetected); Barbiturates Screen Not Detected (NotDetected); Benzodiazepine Screen Not Detected (NotDetected); Cocaine Metabolite Screen Not Detected (NotDetected); Methadone Not Detected (NotDetected); Methamphetamine Not Detected (NotDetected); Opiate Screen Not Detected (NotDetected); Oxycodone Screen Not Detected (NotDetected); Phencyclidine (PCP) Not Detected (NotDetected); THC/Cannabinoid Screen Detected (NotDetected); Tricyclic Screen Not Detected (NotDetected)
[2021-07-03] MEDS ORDERED: Atorvastatin Calcium 40 MG TAB PO SCH (21:00)
[2021-07-03] MEDS: Enoxaparin Sodium 40 MG/0.4 ML SYRINGE SC SCH (21:28)
[2021-07-04 05:04] LABS: #Basophils 0.1 thou/uL (0.0-0.2); #Eosinphils 0.1 thou/uL (0.0-0.7); #Lymphocytes 2.3 thou/uL (1.20-3.40); #Monocytes 0.6 thou/uL (0.11-0.59); #Neutrophils 3.6 thou/uL (1.40-6.50); %Basophils 0.8 % (0.0-1.0); %Eosinophils 1.1 % (0.0-10.0); %Lymphocytes 34.4 % (21.0-51.0); %Monocytes 8.6 % (0.0-10.0); %Neutrophils 55.1 % (42.0-75.0); Hemoglobin 13.2 g/dL (14.0-18.0); Mean Corpuscular HGB CONC 31.2 g/dL (32.0-36.0); Mean Corpuscular Hemoglobin 29.1 pg (27.0-31.0); Mean Corpuscular Volume 93.2 fL (78.0-98.0); Mean Platelet Volume 5.9 fL (7.4-10.4); Platelet Count 384 thou/uL (130-400); RBC Distribution Width 12.3 % (11.5-14.5); Red Blood Cell (RBC) Count 4.55 mill/uL (4.70-6.10); White Blood Cell (WBC) Count 6.6 thou/uL (4.8-10.8)
[2021-07-04 05:26] LABS: Anion Gap 13 mmol/L (10-20); BUN (Urea Nitrogen) 10 mg/dL (8.4-25.7); Calc. Creatinine Clearance 68 mL/min (70-130); Calcium 9.5 mg/dL (7.8-10.44); Carbon Dioxide 27 mmol/L (22-29); Chloride 104 mmol/L (98-107); Glucose 99 mg/dL (70-105); Potassium 3.6 mmol/L (3.5-5.1); Sodium 140 mmol/L (136-145)
[2021-07-04] MEDS: Ascorbic Acid 500 mg Chewable Tablet PO SCH (08:41)
[2021-07-04] MEDS: Zinc Sulfate 220 MG CAP PO SCH (08:41)
[2021-07-04] MEDS: Aspirin Chewable 81 MG TAB PO SCH (08:41)
[2021-07-04] MEDS ORDERED: Lisinopril 5 MG TAB PO SCH (09:00)
[2021-07-04 10:25] VITALS: BP 136/76; TEMP 97.9
== END 2021-07-04 13:13 | disposition home or self-care (01) | DRG 313 ==
LOC: ERS 14:09 → ERHOLD 17:31 → 2SW 07-03 14:57 → OBSVTOIN 07-03 16:44
PROVIDERS: ADMIT Internal Medicine; ATTEND Internal Medicine
PROC: 8E0ZXY6 Isolation (ICD-10-PCS; principal; 2021-07-03)
DX: R07.89 Other chest pain (principal); U07.1 COVID-19; I25.10 Atherosclerotic heart disease of native coronary artery without angina pectoris; E78.00 Pure hypercholesterolemia, unspecified; I10 Essential (primary) hypertension; E78.5 Hyperlipidemia, unspecified; K58.9 Irritable bowel syndrome, unspecified; Z88.8 Allergy status to other drugs, medicaments and biological substances; Z86.73 Personal history of transient ischemic attack (TIA), and cerebral infarction without residual deficits; Z79.899 Other long term (current) drug therapy; Z79.82 Long term (current) use of aspirin; I25.2 Old myocardial infarction; Z95.5 Presence of coronary angioplasty implant and graft; Z90.49 Acquired absence of other specified parts of digestive tract; Z91.14 Patient's other noncompliance with medication regimen; Z86.16 Personal history of COVID-19; Z87.01 Personal history of pneumonia (recurrent)
CPT/HCPCS: 0240U; 36415; 71046; 78452; 80048; 80053; 80061; 80306; 81001; 83735; 84100; 84484; 85025; 86140; 93005; 93017; 93306; 96372; A9500; G0378; J0153; J1650; J7050; Q0162

== ENCOUNTER 2023-02-06 09:19 | Emergency (ER) | payer OTHER, SELFPAY ==
[2023-02-06 10:08] LABS: #Monocytes 0.3 thou/uL (0.11-0.59); #Neutrophils 2.1 thou/uL (1.40-6.50); %Basophils 0.5 % (0.0-1.0); %Eosinophils 0.5 % (0.0-10.0); %Lymphocytes 35.2 % (21.0-51.0); %Neutrophils 54.5 % (42.0-75.0); Hematocrit 38.9 % (42.0-52.0); Hemoglobin 12.8 g/dL (14.0-18.0); Mean Corpuscular HGB CONC 32.9 g/dL (32.0-36.0); Mean Corpuscular Hemoglobin 29.6 pg (27.0-31.0); Mean Corpuscular Volume 89.8 fl (78.0-98.0); Mean Platelet Volume 7.5 fL (7.4-10.4); Platelet Count 270 10x3/uL (130-400); Red Blood Cell (RBC) Count 4.33 mill/uL (4.70-6.10); White Blood Cell (WBC) Count 3.8 10x3/uL (4.8-10.8)
[2023-02-06] MEDS ORDERED: Ketorolac Tromethamine 30 MG/ML VIAL ONE (10:11)
[2023-02-06 10:14] LABS: Bacteria/HPF None Seen HPF (None Seen); Bilirubin Negative (Negative); Blood, Urine Negative (Negative); CAUTI Indications for Culture Pelvic or flank pain; Clarity Clear (Clear); Glucose, Urine (Dipstick) Normal (Negative); Ketone, Urine Negative (Negative); Leukocyte Negative Leu/uL (Negative); Nitrite Negative (Negative); Protein, Urine (Dipstick) 10 mg/dL (Neg-Trace); RBC/HPF None Seen HPF (0-3); Specific Gravity, Urine 1.027 (1.002-1.036); Squamous Epithelial None Seen HPF (0-3); Urobilinogen Normal mg/dL (Less than 2); WBC/HPF 0-3 HPF (0-3); pH, Urine 5.5 (5.0-9.0)
[2023-02-06 10:18] LABS: Urine Culture Reflex No No
[2023-02-06 10:33] LABS: ALT (SGPT) 33 U/L (8-55); AST (SGOT) 30 U/L (5-34); Albumin 4.5 g/dL (3.5-5.0); Alkaline Phosphatase 80 U/L (40-110); Anion Gap 15 mmol/L (10-20); BUN (Urea Nitrogen) 16 mg/dL (8.4-25.7); Bilirubin, Total 0.6 mg/dL (0.2-1.2); Calc. Creatinine Clearance 0 mL/min (70-130); Calcium 9.3 mg/dL (7.8-10.44); Carbon Dioxide 22 mmol/L (22-29); Chloride 108 mmol/L (98-107); Estimated GFR 102; Globulin 2.6 g/dL (2.4-3.5); Glucose 87 mg/dL (70-105); Potassium 3.6 mmol/L (3.5-5.1); Protein, Total 7.1 g/dL (6.0-8.3); Sodium 141 mmol/L (136-145)
[2023-02-06] MEDS ORDERED: Acetaminophen 500 MG TAB ONE (11:25)
== END 2023-02-06 11:38 | disposition home or self-care (01) ==
LOC: ERS 09:19
DX: R10.9 Unspecified abdominal pain (principal); E78.00 Pure hypercholesterolemia, unspecified; I10 Essential (primary) hypertension; Z87.891 Personal history of nicotine dependence
CPT/HCPCS: 36415; 74176; 80053; 81001; 83690; 85025; 96360; 96372; J1885

== ENCOUNTER 2023-11-03 10:28 | Emergency (ER) | payer OTHER ==
[2023-11-03] MEDS ORDERED: Ketorolac Tromethamine 30 MG (1 mL) VIAL ONE (11:32)
== END 2023-11-03 11:39 | disposition home or self-care (01) ==
LOC: ERS 10:28
DX: B34.9 Viral infection, unspecified (principal); E78.00 Pure hypercholesterolemia, unspecified; I10 Essential (primary) hypertension; Z87.891 Personal history of nicotine dependence
CPT/HCPCS: 96372; 99283; J1885